=== PATIENT | female | born 1990 | race Two or more races ===

== ENCOUNTER 2017-07-06 14:30 | Emergency (ER) | payer OTHER ==
--- NOTE | 2017-07-06 14:52 | EDPHY ---
H & P Stated Complaint: Swelling lips from injection at endodontics office Time Seen by Provider: 07/06/17 14:52 Source: Patient Exam Limitations: No limitations - Personal History LMP (Females 10-55): Unknown Current Tetanus Diphtheria and Acellular Pertussis (TDAP): Yes - Medical/Surgical History Hx Asthma: No Hx Chronic Respiratory Disease: No Hx Diabetes: No Hx Cardiac Disease: No Hx Renal Disease: No Hx Cirrhosis: No Hx Alcoholism: No Hx HIV/AIDS: No Hx Splenectomy or Spleen Trauma: No Other PMH: PMH:DENIES. PSH:DENIES - Social History Smoking Status: Never smoked Constitutional: Initial Vital Signs Temperature (C) 36.9 C 07/06/17 14:32 Heart Rate 83 07/06/17 14:32 Respiratory Rate 18 07/06/17 14:32 Blood Pressure 126/94 H 07/06/17 14:32 O2 Sat (%) 95 07/06/17 14:32 O2 Delivery Mode Room Air Allergies/Adverse Reactions: No Known Allergies Allergy (Verified 07/06/17 14:32) Home Medications: Medication Instructions Recorded Ranitidine HCl [Zantac 75] 150 mg PO DAILY #14 tablet 07/06/17 predniSONE 60 mg PO DAILY #15 tab 07/06/17 Medical Decision Making ED Course/Re-evaluation: CHIEF COMPLAINT: Lip swelling HISTORY OF PRESENT ILLNESS: The patient is a 27-year-old female presenting with upper lip swelling that started during a dental procedure. The patient was injected with hyperchloride under the root. She continued to experience pain during the procedure and received more local anesthetic. Her lips began to swell significantly. She denies dyspnea, throat swelling, tongue swelling, or chest pain. REVIEW OF SYSTEMS: A 10 point review of systems was performed and is negative with the exception of the elements mentioned in the history of present illness. PHYSICAL EXAM: HR, BP, O2 Sat, RR. Temp noted General Appearance: Alert, well hydrated, appropriate, and non-toxic appearing. Eyes: Pupils equal, round, reactive to light and accommodation, EOMI, no trauma , no injection. Nose: Atraumatic, no rhinorrhea, clear. Mouth: Swelling to upper and lower lips, worse on the upper lip. No tongue swelling. No uvula swelling. Throat: No swelling. There is no erythema or exudates, no lesions, normal tonsils, mucus membranes moist. Neck: Supple, 2+ carotid upstroke, nontender, no lymphadenopathy. Respiratory: No retractions, no distress, no wheezes, and no accessory muscle use. Lungs are clear to auscultation bilaterally. Cardiovascular: Regular rate and rhythm, no murmurs, rubs, or gallops. Bilateral carotid, radial, dorsalis pedis, and posterior tibial pulses intact. Good capillary refill all extremities. Gastrointestinal: Abdomen is soft, nontender, non-distended, no masses, no rebound, no guarding, no peritoneal signs. Musculoskeletal: Normal active ROM of all extremities, atraumatic. Neurological: Alert, appropriate, and interactive. The patient has normal DTRs and non-focal cranial nerves, motor, sensory, and cerebellar exam. Skin: No rashes, good turgor, no nodules on palpation. Past medical history: Denies. Past surgical history: Denies. Family history: Noncontributory. Social history: Kazakh speaking. Lives in [place]. . DIFFERENTIAL DIAGNOSIS: The differential diagnosis included but was not limited to angioedema, anaphylaxis, anaphylactoid reaction, urticarial reaction, and other infectious causes for skin rash. MEDICAL DECISION MAKING: Patient presents with angioedema that developed during a dental procedure. She has upper and lower lip swelling. No tongue or uvula swelling. No difficulty breathing or chest pain. IV was established. The patient received 50mg Benadryl, 40mg Pepcid, and Solu-Medrol IV. I will continue to monitor the patient for the next hour. The patient is Kazakh speaking, a cemetery workers supervisor was present during examination. 1520: The patient continues to have upper lip swelling. It has not improved or decreased. She received 0.3mg Epinephrine IM. 1625: The patient continues to have a angioedema. She has no evidence of obstructed airway. I discussed admission for further observation, the patient declined, she would like to go home. Strict return precautions given. - Data Points Medications Given: Discontinued Medications Hydrocodone Bitart/Acetaminophen ([place] 5/325) 2 tab PO EDNOW ONE Stop: 07/06/17 16:11 Last Admin: 07/06/17 16:27 Dose: 1 tab Diphenhydramine HCl (Benadryl Injection) 50 mg IVP EDNOW ONE Stop: 07/06/17 15:04 Last Admin: 07/06/17 15:05 Dose: 50 mg Epinephrine HCl (Epinephrine) 0.3 mg IM EDNOW ONE Stop: 07/06/17 15:26 Last Admin: 07/06/17 15:26 Dose: 0.3 mg Famotidine (Pepcid) 40 mg IVP EDNOW ONE Stop: 07/06/17 15:04 Last Admin: 07/06/17 15:05 Dose: 40 mg Methylprednisolone Sodium Succinate (Solu-Medrol) 125 mg IVP EDNOW ONE Stop: 07/06/17 15:04 Last Admin: 07/06/17 15:05 Dose: 125 mg Departure - Departure Disposition: Home, Routine, Self-Care Clinical Impression: Angioedema Qualifiers: Encounter type: initial encounter Qualified Code(s): T78.3XXA - Angioneurotic edema, initial encounter Condition: Good Instructions: Angioedema (ED) Additional Instructions: Take Prednisone as directed. You have already received your dose of Prednisone today, start taking this tomorrow. Take Zantac as directed. I recommend Benadryl to help improve swelling, (this may cause drowsiness). Return to the Emergency Department if you develop difficulty breathing, tongue swelling, throat swelling, worsened swelling of your lips, or other concerns. Referrals: [facility],. [Clinic] - As per Instructions Prescriptions: predniSONE 60 mg PO DAILY #15 tab Ranitidine HCl [Zantac 75] 150 mg PO DAILY #14 tablet Print Language: Kazakh Report Scribed for: Derek Drake Report Scribed by: Mihaela Mariee Date of Report: 07/06/17 Time of Report: 15:30
[2017-07-06] MEDS ORDERED: FAMOTIDINE 20 MG/2 ML SDV ONE (14:58)
[2017-07-06] MEDS ORDERED: FAMOTIDINE 20 MG/2 ML SDV IVP ONE (15:03)
[2017-07-06] MEDS ORDERED: methylPREDNISolone SOD SUCC 125 MG/2 ML VIAL IVP ONE (15:03)
[2017-07-06] MEDS ORDERED: HYDROCODONE/APAP 5/325 TAB PO ONE (16:10)
[2017-07-06 17:00] VITALS: BP 118/74; PULSE 104; RESP 18; TEMP 98.1; O2SAT 96
[2017-07-06] MEDS ORDERED: methylPREDNISolone SOD SUCC 125 MG/2 ML VIAL ONE (18:47)
== END 2017-07-06 16:59 | disposition home or self-care (01) ==
DX: T78.3XXA Angioneurotic edema, initial encounter (principal)
CPT/HCPCS: 96374; J0171; J1200; J2930